=== PATIENT | male | born 1975 | race African-American/Black ===

== ENCOUNTER 2018-09-23 11:13 | Emergency (ER) | payer MEDICAID ==
[2018-09-23] VITALS (18 sets, daily range): BP systolic 105–132; BP diastolic 63–86
[~2018-09-23] VITALS: Ht 185.4 cm; Wt 72.6 kg
[~2018-09-23 11:13] MED LIST: ZANTAC150 MG ORAL
[2018-09-23] MEDS ORDERED: UNOBMED (11:14)
[2018-09-23] MEDS ORDERED: LORazepam Inj 2mg/ml 1ml IM ONE (11:15)
[2018-09-23] MEDS ORDERED: Haloperidol 5mg/ml Inj IM ONE (11:15)
[2018-09-23] MEDS ORDERED: DiphenhydrAMINE 50mg/ml Inj IM ONE (11:15)
[2018-09-23 11:40] LABS: BASOPHILS % (AUTO) 1.6 % (0.0-2.0); EOSINOPHILS % (AUTO) 2.1 % (0.0-3.0); HEMATOCRIT 45.3 % (42.0-52.0); HEMOGLOBIN 14.2 G/DL (14.2-18.0); MEAN CORPUSCULAR VOLUME 77 FL (80-99); NEUTROPHILS % (AUTO) 67.4 % (45.0-75.0); PLATELET COUNT 192 K/UL (150-450); RED BLOOD COUNT 5.85 M/UL (4.70-6.10); RED CELL DISTRIBUTION WIDTH 12.5 % (11.6-14.8); WHITE BLOOD COUNT 8.5 K/UL (4.8-10.8)
[2018-09-23 11:53] LABS: ANION GAP 15 mmol/L (5-15); BLOOD UREA NITROGEN 23 mg/dL (7-18); CALCIUM 9.5 MG/DL (8.5-10.1); CARBON DIOXIDE 23 MMOL/L (21-32); CHLORIDE 105 MMOL/L (98-107); CREATININE 1.7 MG/DL (0.55-1.30); POTASSIUM 4.1 MMOL/L (3.5-5.1); SODIUM 143 MMOL/L (136-145)
[2018-09-23 11:56] LABS: ALANINE AMINOTRANSFERASE 27 U/L (12-78); ALBUMIN/GLOBULIN RATIO 0.8 (1.0-2.7); ALKALINE PHOSPHATASE 54 U/L (46-116); ASPARTATE AMINO TRANSFERASE 30 U/L (15-37); BILIRUBIN,TOTAL 0.3 MG/DL (0.2-1.0); CREATINE KINASE 800 U/L (26-308)
--- NOTE | 2018-09-23 15:00 | Emergency Room Report ---
History of Present Illness General Chief Complaint: Behavioral Complaint Source: EMS (Sharath Gray MD) Present Illness HPI Patient is a 42-year-old male brought in by [employer] with EMS for increased agitation. Patient reportedly had made threats to harm himself. The patient reportedly had previous he been in psychiatric hospital. Patient noted be markedly agitated. The patient presented been on psychiatric medications per police (Sharath Gray MD) Allergies: Coded Allergies: No Known Allergies (Unverified , 09/15/16) UNABLE TO ASSESS (Unverified , 09/23/18) pt is altered, refused to provide Patient History Reviewed Nursing Documentation: PMH: Agreed; PSxH: Agreed (Sharath Gray MD) Nursing Documentation-PMH History Of Psychiatric Problem: Yes (Sharath Gray MD) Review of Systems All Other Systems: limited - by poor historian (Sharath Gray MD) Physical Exam Vital Signs Date Time Temp Pulse Resp B/P (MAP) Pulse Ox O2 Delivery O2 Flow Rate FiO2 09/23/18 11:10 98.1 108 18 133/75 98 Room Air (Sharath Gray MD) Medical Decision Making Diagnostic Impression: Primary Impression: Psychosis Additional Impression: Polysubstance abuse ER Course Patient presented for agitation and suicidal thoughts. Differential diagnoses include substance abuse, psychosis, bipolar disorder, depression, malingering Because of complexity of patient's case laboratory testing and imaging studies were ordered. The patient noted be markedly agitated was briefly placed in restraints. He subsequently noted to be more calm after medications and restraints were discontinued. Laboratory Tests Test 09/23/18 11:28 09/23/18 13:55 White Blood Count 8.5 K/UL (4.8-10.8) Red Blood Count 5.85 M/UL (4.70-6.10) Hemoglobin 14.2 G/DL (14.2-18.0) Hematocrit 45.3 % (42.0-52.0) Mean Corpuscular Volume 77 FL (80-99) L Mean Corpuscular Hemoglobin 24.3 PG (27.0-31.0) L Mean Corpuscular Hemoglobin Concent 31.4 G/DL (32.0-36.0) L Red Cell Distribution Width 12.5 % (11.6-14.8) Platelet Count 192 K/UL (150-450) Mean Platelet Volume 7.4 FL (6.5-10.1) Neutrophils (%) (Auto) 67.4 % (45.0-75.0) Lymphocytes (%) (Auto) 21.0 % (20.0-45.0) Monocytes (%) (Auto) 8.0 % (1.0-10.0) Eosinophils (%) (Auto) 2.1 % (0.0-3.0) Basophils (%) (Auto) 1.6 % (0.0-2.0) Sodium Level 143 MMOL/L (136-145) Pending Potassium Level 4.1 MMOL/L (3.5-5.1) Pending Chloride Level 105 MMOL/L (98-107) Pending Carbon Dioxide Level 23 MMOL/L (21-32) Pending Anion Gap 15 mmol/L (5-15) Blood Urea Nitrogen 23 mg/dL (7-18) H Pending Creatinine 1.7 MG/DL (0.55-1.30) H Pending Estimate Glomerular Filtration Rate 53.3 mL/min (>60) Pending Glucose Level 78 MG/DL (74-106) Pending Calcium Level 9.5 MG/DL (8.5-10.1) Pending Total Bilirubin 0.3 MG/DL (0.2-1.0) Pending Aspartate Amino Transferase (AST) 30 U/L (15-37) Pending Alanine Aminotransferase (ALT) 27 U/L (12-78) Pending Alkaline Phosphatase 54 U/L (46-116) Pending Total Creatine Kinase 800 U/L (26-308) H Pending Total Protein 9.0 G/DL (6.4-8.2) H Pending Albumin 4.0 G/DL (3.4-5.0) Pending Globulin 5.0 g/dL Pending Albumin/Globulin Ratio 0.8 (1.0-2.7) L Salicylates Level 1.4 ug/mL (2.8-20) L Urine Opiates Screen Negative (NEGATIVE) Acetaminophen Level < 2 MCG/ML (10-30) L Urine Barbiturates Screen Negative (NEGATIVE) Phencyclidine (PCP) Screen Negative (NEGATIVE) Urine Amphetamines Screen Positive (NEGATIVE) H Urine Benzodiazepines Screen Negative (NEGATIVE) Urine Cocaine Screen Positive (NEGATIVE) H Urine Marijuana (THC) Screen Positive (NEGATIVE) H Serum Alcohol < 3 mg/dL (Sharath Gray MD) ER Course Patient is medically cleared, has had slightly elevated CPKs, and the 700 range , and I have spoken with him now that he has been off of restraints, he reports he is not suicidal, but he does appear agitated still, and exhibits hyperverbal , nontender tangential thoughts, speaking about how the police accused him of being suicidal even though he himself was not, and would not focus on my questions. He has a known history of psychiatric disorder, he is medically cleared, and will be transferred to [facility] for [facility]. (NICKI DUARTE M.D) Last Vital Signs Date Time Temp Pulse Resp B/P (MAP) Pulse Ox O2 Delivery O2 Flow Rate FiO2 09/23/18 14:00 66 17 98 Room Air 09/23/18 12:15 98.1 110/71 (Sharath Gray MD) Disposition: XFER TO PSYCH HOSP/UNIT Condition: Stable Referrals: [facility],REFERRING (PCP) Sharath Gray MD Sep 23, 2018 15:00 NICKI DUARTE M.D Sep 24, 2018 08:30
[2018-09-23 15:34] LABS: ANION GAP 9 mmol/L (5-15); BLOOD UREA NITROGEN 25 mg/dL (7-18); CALCIUM 9.6 MG/DL (8.5-10.1); CARBON DIOXIDE 25 MMOL/L (21-32); CHLORIDE 107 MMOL/L (98-107); CREATININE 1.5 MG/DL (0.55-1.30); POTASSIUM 4.1 MMOL/L (3.5-5.1); SODIUM 141 MMOL/L (136-145)
[2018-09-23 15:39] LABS: ALANINE AMINOTRANSFERASE 25 U/L (12-78); ALBUMIN 3.6 G/DL (3.4-5.0); ALBUMIN/GLOBULIN RATIO 0.8 (1.0-2.7); ALKALINE PHOSPHATASE 50 U/L (46-116); ASPARTATE AMINO TRANSFERASE 32 U/L (15-37); BILIRUBIN,TOTAL 0.3 MG/DL (0.2-1.0); CREATINE KINASE 725 U/L (26-308)
[2018-09-23 19:17] LABS: CREATINE KINASE 686 U/L (26-308)
[2018-09-24] VITALS (8 sets, daily range): BP systolic 107–138; BP diastolic 62–87
[2018-09-24 08:10] LABS: CREATINE KINASE 746 U/L (26-308)
[2018-09-24 11:37] LABS: CREATINE KINASE 605 U/L (26-308)
[2018-09-24 14:21] LABS: APPEARANCE,URINE CLEAR; BILIRUBIN, URINE NEGATIVE (NEGATIVE); COLOR,URINE PALE YELLOW; GLUCOSE, URINE (UA) NEGATIVE (NEGATIVE); KETONES,URINE NEGATIVE (NEGATIVE); LEUKOCYTE ESTERASE ,URINE 1+ (NEGATIVE); NITRITE,URINE NEGATIVE (NEGATIVE); PH,URINE 6.5 (4.5-8.0); PROTEIN,URINE NEGATIVE (NEGATIVE); UROBILINOGEN,URINE NORMAL MG/DL (0.0-1.0)
[2018-09-24 16:16] LABS: CREATINE KINASE 670 U/L (26-308)
== END 2018-09-24 18:42 ==
LOC: EDBD 11:13 → EMR 12:20
DX: F29 Unspecified psychosis not due to a substance or known physiological condition (principal); F19.10 Other psychoactive substance abuse, uncomplicated
CPT/HCPCS: 36415; 80053; 80307; 80329; 81001; 82550; 85025; 96360; 96361; 96372; 99284; J1200; J1630